=== PATIENT | female | born 2000 | race African-American/Black ===

== ENCOUNTER 2021-04-23 19:47 | Emergency (ER) | payer SELFPAY ==
[~2021-04-23] VITALS: Ht 165.1 cm; Wt 81.6 kg
[2021-04-23 20:36] VITALS: BP 138/96
--- NOTE | 2021-04-23 20:36 | NUR ---
PT YUSRASELDante C/O NEED FOR PSYCH MEDREFILL. TOOK LAST DOSE OF QUETIAPINE, MIRTAZAPINE, DESVENLAFAXINE 04/22. FEELING ANXIOUS. PT A/OX4. TOLERATING R/A WELL
[2021-04-23] MEDS ORDERED: MIRTAZAPINE 15 MG TABLET ONE (20:53)
[2021-04-23] MEDS ORDERED: MIRTAZAPINE 15 MG TABLET PO ONE (21:00)
[2021-04-23] MEDS ORDERED: DESVENLAFAXINE SUCCINATE 50 MG PO ONE (21:00)
[2021-04-23] MEDS ORDERED: QUETIAPINE FUMARATE 100 MG TABLET PO SCH (21:00)
[2021-04-23] MEDS ORDERED: QUETIAPINE FUMARATE 100 MG TABLET ONE (21:00)
--- NOTE | 2021-04-23 21:49 | NUR ---
Patient discharged to home in stable condition. Rx and Written and verbal after care instructions given. Patient verbalizes understanding of instruction.
== END 2021-04-23 21:50 | disposition home or self-care (01) ==
LOC: ER 19:51
DX: Z76.0 Encounter for issue of repeat prescription (principal); F32.9 Major depressive disorder, single episode, unspecified

== ENCOUNTER 2021-04-24 20:46 | Emergency (ER) | payer SELFPAY ==
[~2021-04-24] VITALS: Ht 165.1 cm; Wt 81.6 kg
[2021-04-24 20:58] VITALS: BP 129/72
--- NOTE | 2021-04-24 21:04 | NUR ---
REQUESTING MED REFILL QUETIAPINE 300MG MIRTAZAPINE 15MG DESVENLAFAXINE 50MG LITHIUM CARBONATE 300MG BID
[2021-04-24] MEDS ORDERED: LITHIUM CARBONATE (300 MG CAP) 300 MG CAPSULE PO STA (21:46)
[2021-04-24] MEDS ORDERED: QUETIAPINE FUMARATE 100 MG TABLET PO STA (21:46)
[2021-04-24] MEDS ORDERED: MIRTAZAPINE 15 MG TABLET ONE (21:57)
[2021-04-24] MEDS ORDERED: MIRTAZAPINE 15 MG TABLET PO ONE (22:00)
== END 2021-04-24 22:30 | disposition home or self-care (01) ==
LOC: ER 20:48
DX: F32.9 Major depressive disorder, single episode, unspecified (principal); Z76.0 Encounter for issue of repeat prescription